=== PATIENT | female | born 1975 | race Caucasian/White ===

== ENCOUNTER 2023-06-29 03:35 | Emergency (ER) | payer MEDICAID ==
[~2023-06-29] VITALS: Ht 162.6 cm; Wt 57.6 kg
[2023-06-29 03:53] VITALS: BP 107/74; PULSE 69; RESP 20; TEMP 97.8; O2SAT 99
--- NOTE | 2023-06-29 04:04 | NUR ---
PT WENT TO BED 7
--- NOTE | 2023-06-29 04:12 | NUR ---
Pt BIB self with c/o unable to sleep. She claims to have tretment in few days. Concious. AAOx4. Denies any PMHx and allergies. Addendum: 06/29/23 at 0501 by [email or web address] Pt Allergic to anticholinergic meds.
[2023-06-29] MEDS ORDERED: METHADONE 10 MG TAB PO ONE (04:20)
[2023-06-29] MEDS ORDERED: METHADONE 10 MG TAB ONE (04:23)
--- NOTE | 2023-06-29 04:27 | NUR ---
AMBERD made new order and medicated.
--- NOTE | 2023-06-29 04:57 | NUR ---
Pt still awake on bed. Kept comfortable and needs attended.
[2023-06-29] MEDS ORDERED: MELA10CA PO (04:59)
[2023-06-29 06:03] VITALS: BP 117/71; PULSE 72; RESP 16; TEMP 97.8; O2SAT 99
--- NOTE | 2023-06-29 06:03 | NUR ---
Patient discharged. Written and verbal after care instructions given and explained. Patient alert, oriented and verbalized understanding of instructions. Ambulatory with steady gait. All questions addressed prior to discharge. ID band removed. Patient advised to follow up with PMD. Rx of Melatonin given. Patient educated on indication of medication including possible reaction and side effects. Opportunity to ask questions provided and answered. [employer] Ride provided.
== END 2023-06-29 06:03 | disposition home or self-care (01) ==
LOC: MED 03:35
DX: G47.00 Insomnia, unspecified (principal); F11.23 Opioid dependence with withdrawal; F43.10 Post-traumatic stress disorder, unspecified; Z79.899 Other long term (current) drug therapy
CPT/HCPCS: 99283